=== PATIENT | female | born 1960 | race Caucasian/White ===

== ENCOUNTER 2024-06-30 21:54 | Observation (INO) | payer OTHER, SELFPAY ==
[2024-06-30] VITALS (11 sets, daily range): BP systolic 108–146; BP diastolic 64–83; BMI 22.8
--- NOTE | 2024-06-30 19:20 | ED.CVA ---
History of Present Illness
General
Chief Complaint: CVA/TIA Symptoms
Source: patient
Exam Limitations: none
Time Seen by Provider: 06/30/24 19:18
Onset of Stroke Symptoms
Onset of symptoms known: No
Time pt last seen normal is known: Yes
Date last time pt seen normal: 06/29/24
History of Present Illness
History of Present Illness:
See MDM
Phy Exam
Physical Exam
Physical Exam:
See MDM
Scores
NIH Stroke Score
Level of Consciousness: 0 - Alert
LOC Questions: 0-Answers both correctly
LOC Commands: 0-Performs both correctly
Best Horizontal Gaze: 0-Normal
Visual Fonseca: 0=Normal, no visual loss
Facial Palsy: 0=Normal, symmetrical
Motor - Right Arm: 0=No drift 10 seconds
Motor - Left Arm: 0=No drift 10 seconds
Motor - Right Le-No drift 5 seconds
Motor - Left Le-No drift 5 seconds
Limb Ataxia: 0-Absent
Sensation: 0-Normal
Best Language: 1-Mild aphasia
Dysarthria: 0-Normal
Extinction and Inattention: 0-No abnormality
Total Score:: 1
Course
Orders/Labs/Results
Orders:
Orders
06/30/24 19:18
Electrocardiogram (*1) Stat
Reason for Study: Other
Other Reason for Exam: neuro symptoms
CT Head W/o Iv Contrast Urgent
Comment:
Reason For Exam: expressive aphasia since this morning
EKG- Treatment ONCE
06/30/24 19:22
CT Head & Neck Angio W/wo IV Urgent
Comment:
Reason For Exam: expressive aphasia
06/30/24 19:28
Comprehensive Metabolic Panel Urgent
PTT Urgent
Prothrombin Time Urgent
06/30/24 19:29
Complete Blood Count/With Diff Urgent
Troponin I Urgent
06/30/24 20:00
0.9% Sodium Chloride 1000 ml [Nss] 1,000 ml IV BOLUS
06/30/24 20:48
Consult Neurology [NEUROLOGY CONSULT] Routine
Consulting Provider: Jessie Olvera
Was physician already notified: Yes
Aspirin Chewable [Low Strength Aspirin] 324 mg PO NOW STA
Clopidogrel Bisulfate [Plavix] 300 mg PO NOW STA
Abnormal Lab Results
06/30/24 06/30/24 06/30/24
19: 19:28 19:29
RBC 3.21 L 10^6/uL
(4.20-5.40)
Hgb 9.5 L g/dL
(12.0-16.0)
Hct 29.6 L %
(37.0-47.0)
MCHC 32.1 L g/dL
(33.0-37.0)
RDW 16.9 H %
(11.5-14.5)
Absolute Lymphs (auto) 1.0 L 10^3/uL
(1.2-3.4)
Neutrophils % 75.6 H %
(42.2-75.2)
Lymphocytes % 14.8 L %
(20.5-51.1)
Glucose 130 H mg/dl
(70-99)
AST 42 H U/L
(14-36)
Troponin I 0.084 H* ng/ml
POC Glucose 119 H mg/dl
(70-99)
06/30/24 19:29
06/30/24 19:28
Vital Signs
Initial and Last Documented VS:
Initial Vital Signs
Temp Pulse Resp BP Pulse Ox
97.4 F 84 18 138/67 95
06/30/24 19:19 06/30/24 19:19 06/30/24 19:19 06/30/24 19:19 06/30/24 19:19
Last Documented Vital Signs
Temp Pulse Resp BP Pulse Ox
97.4 F 79 18 131/74 94
06/30/24 19:19 06/30/24 20:45 06/30/24 20:00 06/30/24 20:30 06/30/24 20:45
MDM/Problems Addressed
Differential Diagnosis Includes:
HPI and MDM Narrative:
64-year-old female presenting by EMS for evaluation of expressive aphasia. She woke up at 6 AM with the symptoms. Initially thought this could be medication related so she went back to bed. Throughout the day, symptoms have been progressive.
Since her last known normal was last night at midnight, stroke alert was not called. Case discussed with neurology immediately. Will obtain CT and CTA. Will ultimately admit
Physical exam
General: Well appearing and non-toxic
HEENT: protecting airway
Neck: appears supple
CV: No evidence of cyanosis. Regular rate and rhythm
Resp: No accessory muscle use
Abd: Non-distended
Extremities: No deformities
Neuro: alert. Expressive aphasia but able to get her thought process out
Psych: Normal affect
Skin: Intact
Problems Addressed including Acute and Chronic Conditions affecting care:
1. Expressive aphasia
Acuity: acute
Prognosis: stable
Details: Likely in the setting of CVA. Will obtain CT and CTA.
Updates
CT and CTA negative. Given her persistent symptoms, will give aspirin and Plavix and admit. Patient found to have an elevated troponin but she denies chest pain or shortness of breath. Will repeat EKG
Differential Diagnosis (but not limited to): Intracranial hemorrhage, ischemic stroke, hyponatremia
Testing considered: Carotid ultrasound
Drug therapy (if applicable): OTC meds, please see d/c instruction regarding Rx drugs
Amount and/or Complexity of Data Reviewed
Clinical info obtained from: Patient
External data reviewed: N/A
Labs I independently reviewed (but not limited to): Elevated troponin, anemia
Radiology: The CT scan was personally and independently reviewed. In addition, official CT report reviewed.
Pulse Ox: not hypoxic
EKG independently reviewed: Sinus rhythm, normal axis, no STEMI
Mathematics Academic Chair: Sinus rhythm
Critical Care: N/A
Risk of Complication:
Social Determinants of health: Good social support
Discussed with other providers: Hospitalist, neurologist
Escalation of Care includes Admit/Obs: Given the concern for stroke, will admit
Occasional wrong word or 'sound a like' substitutions may have occurred due to the inherent limitations of voice recognition software. Read the chart carefully and recognize, using context, where substitutions have occurred.
*Critical Care Note
Total Time (30-74mins, 75-104mins- exclusive of procedures): Not Applicable
ED Attending Note
-
Portions of this chart may have been created with voice recognition software.� Occasional wrong word or��sound alike� substitutions may have occurred due to the inherent limitations of voice recognition software.
Discharge Plan
Departure
Patient Disposition: Admit
Date of Disposition: 06/30/24
Time of Disposition: 20:58
Admit to: Telemetry
Presentation/result/management discussed w/ accepting MD/DO: Hospitalist
Discharge Problem:
Expressive aphasia
Prescriptions:
No Action
celecoxib 200 mg Capsule
200 mg PO BID
midodrine 5 mg Tablet
5 mg PO 5/D
aspirin 81 mg Tablet,Delayed Release (Dr/Ec)
81 mg PO DAILY
oxycodone-acetaminophen 5-325 mg Tablet
1 tab PO Q4HPRN PRN (Reason: moderate pain)
Patient Comments:
06/30/2024: last filled 03/12/24, 16 tabs for 3 days from [id number]
primidone 250 mg Tablet
250 mg PO BID
levothyroxine 50 mcg Tablet
50 mcg PO HS
pantoprazole 40 mg Tablet,Delayed Release (Dr/Ec)
40 mg PO DAILY
fludrocortisone 0.1 mg Tablet
0.1 mg PO DAILY
escitalopram oxalate 20 mg Tablet
20 mg PO DAILY
Referrals:
Zhao Muller MD [Family Provider] -
Interventions
Interventions:
*Risk Screen - Suicide Last Done: 06/30/24 19:50
*General Assessment Last Done: 06/30/24 19:50
*Neglect/Abuse Screening Last Done: 06/30/24 19:50
ED- Neurological Assessment Last Done: 06/30/24 19:53
Discharge Date and Time
Print Language: URDU
[2024-06-30 19:23] LABS: Glucose - Point of Care 119 mg/dl (70-99)
[2024-06-30 19:35] LABS: % Basophils 0.1 % (0-2); % Eosinophils 1.2 % (0-6); % Immature Granulocytes 0.4 % (0-0.5); % Lymphocytes 14.8 % (20.5-51.1); % Monocytes 7.9 % (1.7-9.3); % Neutrophils 75.6 % (42.2-75.2); Absolute Eosinophils 0.1 10^3/uL (0-0.7); Absolute Monocytes 0.5 10^3/uL (0.1-0.6); Absolute Neutrophils 5.1 10^3/uL (1.4-6.5); Hematocrit 29.6 % (37.0-47.0); Hemoglobin 9.5 g/dL (12.0-16.0); Mean Corp Hgb Conc. 32.1 g/dL (33.0-37.0); Mean Corpuscular Hgb 29.6 pg (27.0-31.0); Mean Corpuscular Volume 92.2 fL (81.0-99.0); Mean Platelet Volume 9.7 fL (7.4-10.4); Nucleated Red Blood Cells % 0 %; Platelet Count 290 10^3/uL (130-400); Red Blood Cell Count 3.21 10^6/uL (4.20-5.40); Red Cell Dist. Width 16.9 % (11.5-14.5); White Blood Cell Count 6.7 10^3/uL (4.8-10.8)
[2024-06-30 19:53] LABS: INR 1.03; PT 13.3 Sec (11.4-14.6)
[2024-06-30 19:54] LABS: ALT (SGPT) 25 U/L (0-35); APTT 27.6 Sec (23.4-35.0); AST (SGOT) 42 U/L (14-36); Albumin 3.7 g/dl (3.5-5.0); Alkaline Phosphatase 101 U/L (38-126); Blood Urea Nitrogen 16 mg/dl (7-17); Calcium 8.6 mg/dl (8.4-10.2); Carbon Dioxide 24 mmol/L (22-30); Chloride 106 mmol/L (98-107); Estimated Creatinine Clearance 80 ml/min; Glucose 130 mg/dl (70-99); Potassium 3.8 mmol/L (3.5-5.1); Sodium 140 mmol/L (135-145); Total Bilirubin 0.4 mg/dl (0.2-1.3); Total Protein 6.3 g/dl (6.3-8.2); eGFR > 60.00
[2024-06-30 20:04] LABS: Troponin I 0.084 ng/ml
[2024-06-30] MEDS: NSS 1000 IV (20:04)
--- NOTE | 2024-06-30 21:05 | HPS.HSE ---
Family Physician
-
Family Physician: Zhao Muller
Chief Complaint
-
Expressive aphasia
History of Present Illness
64-year-old female with PMH for hypothyroidism, depression, postural hypotension, GERD, essential tremors presented to us with expressive aphasia since this morning. she is having trouble finding words, difficulty expressing herself. patient stated
MORE, dizzy, off balance. patient has history of frequent falls due to postural hypotension. denied fever chills, runny nose, congestion, cough.denied chest pain, sob. denied abdominal pain,n,v,d. denied dysuria or hematuria.
CT and CTA negative loaded with asa and Plavix. admitting for further management.
Medical History
Past Medical History
Past Medical History: Reports Other
Additional Past Medical History:
essential tremors
hypothyroidism
depression
GERD
postural hypotension
Past Surgical History: Reports Other
Additional Past Surgical History:
knee surgery
c1 c2 fusion
femur surgery
stomach surgery
Social History
Tobacco: Former Smoker
Alcohol: Occasional
Drug: None
Personal:
Living: With Family
Family History
Family History: Not pertinent
Allergies / Home Medications
Allergies reflects when Allergies were last updated in [facility].
Home Medications with original date entered in [facility]
Allergy/Medication List:
Allergies
Allergy/AdvReac Type Severity Reaction Status Date / Time
theophylline Allergy Unknown Verified 06/30/24 19:14
Home Medications
aspirin 81 mg tablet,delayed release 81 mg PO DAILY 06/30/24
celecoxib 200 mg capsule 200 mg PO BID 06/30/24
escitalopram oxalate 20 mg tablet 20 mg PO DAILY 06/30/24
fludrocortisone 0.1 mg tablet 0.1 mg PO DAILY 06/30/24
levothyroxine 50 mcg tablet 50 mcg PO HS 06/30/24
midodrine 5 mg tablet 5 mg PO 5/D 06/30/24
oxycodone-acetaminophen 5 mg-325 mg tablet 1 tab PO Q4HPRN PRN moderate pain 06/30/24
pantoprazole 40 mg tablet,delayed release 40 mg PO DAILY 06/30/24
primidone 250 mg tablet 250 mg PO BID 06/30/24
Review of Systems
-
Constitutional: Reports No Symptoms
EENT: Reports No Symptoms
Respiratory: Reports No Symptoms
Cardiac: Reports No Symptoms
Abdomen/GI: Reports No Symptoms
: Reports No Symptoms
Musculoskeletal: Reports No Symptoms
Skin: Reports No Symptoms
Neurological: Reports Dizzy, Weakness and Other (expressive aphasia)
Endocrine: Reports No Symptoms
Hematologic/Lymphatic: Reports No Symptoms
Psych: Reports No Symptoms
Physical Exam
Vital Signs
Vital Signs
Temp Pulse Resp BP Pulse Ox
97.4 F 79 18 131/74 94
06/30/24 19:19 06/30/24 20:45 06/30/24 20:00 06/30/24 20:30 06/30/24 20:45
Physical Exam
General: Well Developed, Well Nourished and No Apparent Distress
HEENT: NormoCephalic, Moist mucous membranes and Atraumatic
Respiratory: Clear
Cardiac: S1/S2 and Regular Rhythm; No Murmur or Rub
GI: Soft, Non Tender, Non Distended and Normal Bowel Sounds; No Organomegaly
Rectal: Deferred by Provider
Musculoskeletal: No Clubbing, No Cyanosis and No Edema
Skin: No Rash
Neuro: AO x 3, Nonfocal/grossly intact, Slurred Speech, Tremors and Other
Psych: Calm
Laboratory Results
-
06/30/24 19:29
06/30/24 19:28
Laboratory Results
PT 13.3 Sec (11.4-14.6) 06/30/24 19:28
INR 1.03 06/30/24 19:
APTT 27.6 Sec (23.4-35.0) 06/30/24:
Total Bilirubin 0.4 mg/dl (0.2-1.3) 06/30/24:
AST 42 U/L (14-36) H 06/30/24:
ALT 25 U/L (0-35) 06/30/24 19:
Alkaline Phosphatase 101 U/L (38-126) 06/30/24:
Troponin I 0.084 ng/ml H* 06/30/24 19:29
Data Reviewed
-
CT Scan: Report Reviewed by me
Lab Data: Labs Reviewed by me
Impression/Plan
-
# Expressive aphasia
-CT and CTA negative
-Loaded with aspirin and Plavix in ER
-Obtain MRI
-Statin continued. asa and plavix
-Obtain A1c and lipid profile
-Neurology consult
# Elevated Trop likely demand ischemia
-Denied any chest pain
-EKG normal sinus rhythm
-Trend Trope
# Anemia likely chronic
-Obtain iron panel, B12, ferritin, folate, TIBC
-Hemoglobin 9.5
-No active bleeding
-Continue to trend
# Depression
Citalopram continued
# Hypothyroidism
-Levothyroxine continued
# Orthostatics
-Midodrine continued
# GERD
-PPI continued
# essential tremors
-Primidone continued
# DVT prophylaxis
-SCDs
# CODE STATUS
-full code
[2024-06-30] MEDS: PLAVIX 300 MG PO (21:08)
[2024-06-30] MEDS: LOW STRENGTH ASPIRIN 324 MG PO (21:09)
--- NOTE | 2024-06-30 22:00 | W.PN.UPDATE ---
Update Note
Progress Note Update
This is an addendum to the H&P written by Val Prieto. Patient seen and examined independently with PARANORMAL INVESTIGATOR.
64-year-old female past medical history of essential tremor, anxiety/depression, postural hypotension, hypothyroidism, GERD, presenting with difficulty expressing words since this morning with headache. She recently had cervical fracture and T1-T2
fracture requiring neck collar which has since been removed. She has chronic tingling in her legs secondary to the fracture.
Denies any other focal neurological deficits, visual symptoms, or difficulty swallowing.
No focal neurological deficits apart from dysarthria. Presentation consistent with CVA. CTA head and neck negative. Check MRI brain, aspirin and Plavix given, check A1c and lipid panel, speech evaluation, PT/OT. Neurology consulted.
[2024-06-30 22:02] LABS: Creatine Phosphokinase 1019 U/L (30-135); Iron 55 ug/dl (37-170)
[2024-06-30 22:11] LABS: Percent Saturation 20 % (20-50); Total Iron Binding Capacity 271 ug/dl (265-497)
[2024-06-30 22:51] LABS: Urine Albumin Negative (Neg - Trace); Urine Bilirubin Negative (Negative); Urine Character Clear (Clear); Urine Color Yellow; Urine Glucose Negative (Negative); Urine Ketone Negative (Negative); Urine Leukocyte Negative (Negative); Urine Nitrite Positive (Negative); Urine Occult Blood Negative (Negative); Urine Urobilinogen Negative (Neg - 1+)
[2024-06-30 22:56] LABS: Tricyclic Antidepressants Positive (Negative)
[2024-06-30 22:57] LABS: Amphetamines Negative (Negative); Barbiturates Positive (Negative); Benzodiazepines Negative (Negative); Buprenorphine Negative (Negative); Cocaine Negative (Negative); Marijuana Negative (Negative); Methadone Negative (Negative); Methamphetamines Negative (Negative); Opiates Negative (Negative); Phencyclidine Negative (Negative)
[2024-06-30 23:19] LABS: Urine Bacteria Moderate (Negative); Urine Squamous Cell >30 /LPF (Few); Urine White Cell 16-20 /HPF (0-5)
[2024-07-01] VITALS (19 sets, daily range): BP systolic 101–145; BP diastolic 61–107; PULSE 61–141; BMI 22.8
[2024-07-01] MEDS: SYNTHROID 50 MCG PO ×2 (02:12→22:33)
[2024-07-01 03:07] LABS: Ferritin 13.7 ng/ml (11.1-264.0)
[2024-07-01 03:38] LABS: Folate 8.9 ng/ml (2.76-20); Vitamin B12 655 pg/ml (239-931)
[2024-07-01 05:29] LABS: Hematocrit 27.4 % (37.0-47.0); Hemoglobin 8.7 g/dL (12.0-16.0); Mean Corp Hgb Conc. 31.8 g/dL (33.0-37.0); Mean Corpuscular Hgb 29.3 pg (27.0-31.0); Mean Corpuscular Volume 92.3 fL (81.0-99.0); Mean Platelet Volume 10.1 fL (7.4-10.4); Platelet Count 270 10^3/uL (130-400); Red Blood Cell Count 2.97 10^6/uL (4.20-5.40); Red Cell Dist. Width 16.8 % (11.5-14.5); White Blood Cell Count 6.1 10^3/uL (4.8-10.8)
[2024-07-01 05:56] LABS: Blood Urea Nitrogen 11 mg/dl (7-17); Calcium 8.4 mg/dl (8.4-10.2); Carbon Dioxide 25 mmol/L (22-30); Chloride 107 mmol/L (98-107); Estimated Creatinine Clearance 80 ml/min; Glucose 97 mg/dl (70-99); HDL Cholesterol 84 mg/dl; LDL Cholesterol, Calculated 81 mg/dl; Sodium 140 mmol/L (135-145); Total Cholesterol 181 mg/dl (50-199); Triglyceride 83 mg/dl (10-149); Very Low Density Lipoprotein 16 mg/dl (0-30); eGFR > 60.00
[2024-07-01 07:34] LABS: Glycohemoglobin (HgbA1c) 3.8 % (4.0-5.6)
--- NOTE | 2024-07-01 07:47 | CON.NEURO ---
Consultation
Order
Date of Consultation: 07/01/24
Requesting Provider:
Reason for Consult:
CC:
HPI: This is a 64-year-old woman who presented to [facility] on June 30, 2024 with expressive aphasia. According to the patient he has had intermittent expressive dysphagia that have worsened on the morning of the presentation.
This issue has been more evident when trying to formulate and express concepts to others. Ms Mcclain describes semantic errors with no perseveration, phonemic errors. She also reports struggles with maintaining the plot themes while reading.
however, her calculation abilities appear to be preserved. No reports of headache, abnormal movements or family history of history of neurodegenerative disease.
She has a history of a traumatic brain injury (TBI) and C2 fracture, which occurred on April 19. She underwent surgery at [place], performed by Dr. Martínez, followed by a wrist surgery performed by Dr. Dinero. She reports experiencing neck
pain/stiffness and headaches since the surgery. Caity also reports tingling in her fingers in a glove pattern and difficulty identifying objects by touch, which began immediately after the surgery.
ER VS: 138/67, 84, afebrile.
EKG: NSR with 1 st degree of AVB, QTc Int : 451 ms.
PDMP: Oxycodone Hcl (Ir) 5 Mg 5 tabs filled in on 04/10/2024.
Labs: Glucose�130, normal WBCs, sodium, creatinine, hemoglobin�9.5, absolute lymphocyte count�1, troponin�0.0 84, creatinine kinase�1019, LDL�81, vitamin B12�655, normal folate, UA�positive for nitrates, WBCs�bacteria, urine tox�positive for
barbiturates, tricyclic's.
CTA head/neck-no hemodynamically significant stenosis.
Brain MRI wo julianne -no abnormal brain parenchymal signal intensity. Mild parenchymal volume loss(more pronounced bifrontally). Prior C1-C2 posterior fusion. There is a 4 mm focus of T2 hyperintense, T1 hypointense signal within the posterior cord at
the C1-C2 level
PMH:cervical myelopathy, ET, hypothyroidism, anemia, asthma, MDD, h/o obesity; hypotension
PSH:biliopancreatic diversion with duodenal switch, C1-C2 posterior fusion, R TKA, R tibial plateau and distal femur ORIF
SH: lives with a significant other; retired form hospital management; former smoker; social ETOh use; uses a cane PRN
FH: father-hand tremor
All: theophylline
Home Meds: aspirin 81 mg tablet,delayed release 81 mg PO DAILY 06/30/24
celecoxib 200 mg capsule 200 mg PO BID 06/30/24
escitalopram oxalate 20 mg tablet 20 mg PO DAILY 06/30/24
fludrocortisone 0.1 mg tablet 0.1 mg PO DAILY 06/30/24
levothyroxine 50 mcg tablet 50 mcg PO HS 06/30/24
midodrine 5 mg tablet 5 mg PO 5/D 06/30/24
oxycodone-acetaminophen 5 mg-325 mg tablet 1 tab PO Q4HPRN PRN moderate pain 06/30/24
pantoprazole 40 mg tablet,delayed release 40 mg PO DAILY 06/30/24
primidone 250 mg tablet 250 mg PO BID 06/30/24
ROS:Constitutional: Negative. Negative for chills, fever and unexpected weight change.
HENT: Negative for ear pain, hearing loss, tinnitus and trouble swallowing.
Eyes: Negative. Negative for photophobia, pain and visual disturbance.
Respiratory: Negative for cough, choking and shortness of breath.
Cardiovascular: Negative for chest pain, palpitations and leg swelling.
Gastrointestinal: positive for intermittent diarrhea
Endocrine: Negative. Negative for cold intolerance.
Genitourinary: Negative for dysuria, flank pain and urgency.
Musculoskeletal: Positive for neck stiffness.
Skin: Negative for rash.
Allergic/Immunologic: Negative. Negative for immunocompromised state.
Neurological: Positive for imbalance, numbness and weakness in arms, hand and chin tremor, language dysfunction.
Psychiatric/Behavioral: Negative for behavioral problems, confusion and hallucinations.
General: Well developed. In no acute distress.
Cardio: Regular rate and rhythm without murmur. Extremities are without cyanosis or edema.
Neuro:
Mental Status: Alert, oriented to person, place, and date. Moderate expressive dysphasia. Semantic errors. Normal attention and recall. Good fund of knowledge. Follows complex requests across the midline. Comprehension, naming, and repetition
intact. Immediate and delayed recall 3/3.
Cranial Nerves: Pupils are equally round and reactive to light. EOMs full. Visual solano full to confrontation. No ptosis. No nystagmus. V1-V3 intact to light touch and pinprick bilaterally, symmetric. Face symmetric. Normal hearing AU. The
palate elevated well. SCMs and traps 5/5. Tongue midline. No dysarthria.
Motor: Normal bulk and tone. No pronator or arm drift. Strength 5/5 throughout, except for BL IO, WE, finger flexion 4=/5, L hip flexors/knee extensors 4/5. No clonus.
Reflexes: 3+ throughout the upper extremities and knees. + grasp on the R. Positive Roe's BL. Plantar responses flexor bilaterally.
Sensory: Normal vibration at the toes
Coordination: BL action and tremor. Chin and voice tremor.
Gait: deferred
Assessment and Plan:
I. Expressive dysphasia. Likely etiology neurodegenerative(PPA), less likely epileptic.
II. Cervical myelopathy, s/p C1-C2 posterior fusion
III. Essential tremor
-Fall precautions
-PT
-Speech therapy
-Routine EEG
-Pleaswe check vit B12, folate, vit B1
-Neuropsychological evaluation
-OP NCS/EMG of BL LEs givel left proximal leg weakness
-Outpatient neurology follow-up in 2�3 weeks
I personally reviewed all radiology and labs along with past medical records pertinent to current medical problems. Total time spent in patient care is 60 minutes.
Thank you for allowing us to participate in the care of this patient. We will continue to follow. Please do not hesitate to contact us with any questions or concerns.
Subjective/Objective
Subjective Data
Date of Service: July 01, 2024
Objective Data
Vital Signs
Temp Pulse Resp BP Pulse Ox
36.3 C 94 17 124/90 96
06/30/24 19:19 07/01/24 06:45 07/01/24 01:13 07/01/24 05:00 07/01/24 05:00
Lab Results
07/01/24 05:08
07/01/24 05:08
PT 13.3 Sec (11.4-14.6) 06/30/24 19:28
INR 1.03 06/30/24 19:28
APTT 27.6 Sec (23.4-35.0) 06/30/24 19:28
Sodium 140 mmol/L (135-145) 07/01/24 05:08
Potassium 4.0 mmol/L (3.5-5.1) 07/01/24 05:08
BUN 11 mg/dl (7-17) 07/01/24 05:08
Glucose 97 mg/dl (70-99) 07/01/24 05:08
Calcium 8.4 mg/dl (8.4-10.2) 07/01/24 05:08
LDL Cholesterol, Calc 81 mg/dl 07/01/24 05:08
Vitamin B12 655 pg/ml (239-931) 06/30/24 19:29
Ur Buprenorphine Negative (Negative) 06/30/24 22:35
Patient Allergies
theophylline Allergy (Verified 06/30/24 19:14)
Unknown
Medications
-
Active Medications
Generic Name Dose Route Start Last Admin
Trade Name Freq PRN Reason Stop Dose Admin
Acetaminophen 650 mg 06/30/24 23:50
Acetaminophen 650 Mg Rectal Suppository RECTAL 07/28/24 23:49
Q4HPRN PRN
MORE, mild pain, or temp >100.4F
Acetaminophen 650 mg 06/30/24 23:50
Acetaminophen 325 Mg Tablet PO 07/28/24 23:49
Q4HPRN PRN
MORE, mild pain, or temp >100.4F
Aspirin 81 mg 07/01/24 08:00
Aspirin 81 Mg (Enteric Coated) Tablet PO 07/29/24 07:59
DAILY CARL
Atorvastatin Calcium 40 mg 07/01/24 18:00
Atorvastatin (Lipitor) 40 Mg Tablet PO 07/29/24 17:59
QPM CARL
Clopidogrel Bisulfate 75 mg 07/01/24 08:00
Clopidogrel 75 Mg Tablet PO 07/29/24 07:59
DAILY CARL
Escitalopram Oxalate 20 mg 07/01/24 08:00
Escitalopram 20 Mg Tablet PO 07/29/24 07:59
DAILY CARL
Fludrocortisone Acetate 0.1 mg 07/01/24 08:00
Fludrocortisone Acetate 0.1 Mg Tablet PO 07/29/24 07:59
DAILY CARL
Levothyroxine Sodium 50 mcg 07/01/24 01:00 07/01/24 02:12
Levothyroxine 50 Mcg Tablet PO 07/29/24 00:59 50 mcg
HS CARL Administration
Midodrine 5 mg 06/30/24 23:50
Midodrine 5 Mg Tablet PO 07/28/24 23:49
5/D CARL
Oxycodone/Acetaminophen 1 tablet 06/30/24 23:50
Oxycodone 5 Mg/Apap 325 Mg (Percocet) PO 07/14/24 23:49
Q4HPRN PRN
moderate pain
Pantoprazole Sodium 40 mg 07/01/24 08:00
Pantoprazole 40 Mg Delayed Release Tablet PO 07/29/24 07:59
DAILY CARL
Primidone 250 mg 07/01/24 08:00
Primidone 250 Mg Tablet PO 07/29/24 07:59
BID CARL
Home Medications
�Medication �Instructions �Recorded
aspirin 81 mg tablet,delayed 81 mg PO DAILY 06/30/24
release
celecoxib 200 mg capsule 200 mg PO BID 06/30/24
escitalopram oxalate 20 mg tablet 20 mg PO DAILY 06/30/24
fludrocortisone 0.1 mg tablet 0.1 mg PO DAILY 06/30/24
levothyroxine 50 mcg tablet 50 mcg PO HS 06/30/24
midodrine 5 mg tablet 5 mg PO 5/D 06/30/24
oxycodone-acetaminophen 5 mg-325 1 tab PO Q4HPRN PRN moderate pain 06/30/24
mg tablet
pantoprazole 40 mg tablet,delayed 40 mg PO DAILY 06/30/24
release
primidone 250 mg tablet 250 mg PO BID 06/30/24
Vital Signs and Labs
-
Vital Signs and Labs:
Vital Signs
Temp Pulse Resp BP Pulse Ox
36.3 C 92 17 102/88 96
06/30/24 19:19 07/01/24 09:30 07/01/24 01:13 07/01/24 08:53 07/01/24 05:00
Lab Results
07/01/24 05:08
07/01/24 05:08
PT 13.3 Sec (11.4-14.6) 06/30/24 19:28
INR 1.03 06/30/24 19:28
APTT 27.6 Sec (23.4-35.0) 06/30/24 19:28
Sodium 140 mmol/L (135-145) 07/01/24 05:08
Potassium 4.0 mmol/L (3.5-5.1) 07/01/24 05:08
BUN 11 mg/dl (7-17) 07/01/24 05:08
Glucose 97 mg/dl (70-99) 07/01/24 05:08
Calcium 8.4 mg/dl (8.4-10.2) 07/01/24 05:08
LDL Cholesterol, Calc 81 mg/dl 07/01/24 05:08
Vitamin B12 769 pg/ml (104-585) 07/01/24 05:08
Ur Buprenorphine Negative (Negative) 06/30/24 22:35
Medications
-
Medications:
Generic Name Dose Route Start Last Admin
Trade Name Freq PRN Reason Stop Dose Admin
Acetaminophen 650 mg 06/30/24 23:50
Acetaminophen 650 Mg Rectal Suppository RECTAL 07/28/24 23:49
Q4HPRN PRN
MORE, mild pain, or temp >100.4F
Acetaminophen 650 mg 06/30/24 23:50
Acetaminophen 325 Mg Tablet PO 07/28/24 23:49
Q4HPRN PRN
MORE, mild pain, or temp >100.4F
Aspirin 81 mg 07/01/24 08:00 07/01/24 08:38
Aspirin 81 Mg (Enteric Coated) Tablet PO 07/29/24 07:59 81 mg
DAILY CARL Administration
Atorvastatin Calcium 40 mg 07/01/24 18:00
Atorvastatin (Lipitor) 40 Mg Tablet PO 07/29/24 17:59
QPM CARL
Clopidogrel Bisulfate 75 mg 07/01/24 08:00 07/01/24 08:38
Clopidogrel 75 Mg Tablet PO 07/29/24 07:59 75 mg
DAILY CARL Administration
Escitalopram Oxalate 20 mg 07/01/24 08:00 07/01/24 08:39
Escitalopram 20 Mg Tablet PO 07/29/24 07:59 20 mg
DAILY CARL Administration
Fludrocortisone Acetate 0.1 mg 07/01/24 08:00 07/01/24 10:06
Fludrocortisone Acetate 0.1 Mg Tablet PO 07/29/24 07:59 0.1 mg
DAILY CARL Administration
Levothyroxine Sodium 50 mcg 07/01/24 01:00 07/01/24 02:12
Levothyroxine 50 Mcg Tablet PO 07/29/24 00:59 50 mcg
HS CARL Administration
Midodrine 5 mg 06/30/24 23:50
Midodrine 5 Mg Tablet PO 07/28/24 23:49
5/D CARL
Oxycodone/Acetaminophen 1 tablet 06/30/24 23:50
Oxycodone 5 Mg/Apap 325 Mg (Percocet) PO 07/14/24 23:49
Q4HPRN PRN
moderate pain
Pantoprazole Sodium 40 mg 07/01/24 08:00 07/01/24 08:39
Pantoprazole 40 Mg Delayed Release Tablet PO 07/29/24 07:59 40 mg
DAILY CARL Administration
Primidone 250 mg 07/01/24 08:00 07/01/24 10:04
Primidone 250 Mg Tablet PO 07/29/24 07:59 250 mg
BID CARL Administration
Home Medications
-
Home Medications
aspirin 81 mg tablet,delayed release 81 mg PO DAILY 06/30/24
celecoxib 200 mg capsule 200 mg PO BID 06/30/24
escitalopram oxalate 20 mg tablet 20 mg PO DAILY 06/30/24
fludrocortisone 0.1 mg tablet 0.1 mg PO DAILY 06/30/24
levothyroxine 50 mcg tablet 50 mcg PO HS 06/30/24
midodrine 5 mg tablet 10 mg PO BID@0800,1200 06/30/24
oxycodone-acetaminophen 5 mg-325 mg tablet 1 tab PO Q4HPRN PRN moderate pain 06/30/24
pantoprazole 40 mg tablet,delayed release 40 mg PO DAILY 06/30/24
primidone 250 mg tablet 250 mg PO BID 06/30/24
midodrine 5 mg tablet 5 mg PO QPM 07/01/24
[2024-07-01] MEDS: ASPIR LOW (ENTERIC COATED) 81 MG PO (08:38)
[2024-07-01] MEDS: PLAVIX 75 MG PO (08:38)
[2024-07-01] MEDS: PROTONIX 40 MG PO (08:39)
[2024-07-01] MEDS: LEXAPRO 20 MG PO (08:39)
--- NOTE | 2024-07-01 08:41 | W.PN.UPDATE ---
Update Note
Progress Note Update
I personally performed a history and physical exam of the patient and discussed management with the resident. I reviewed the resident's note and agree with the documented findings and plan of care HPI/CC except changes in documentation.
64-year-old female with speech abnormality.
CVS: S1-S2 normal
Chest: CTA B/L
Abdomen: Soft, NT / Bowel sounds present
Extremities: No edema, normal pulses
CAFETERIA CASHIER: mild tremors, mild
# Expressive -Dysphagia speech abnormality
Neurology feels neurodegenerative changes.
Connection studies, neuropsychological evaluation as outpatient and also outpatient neurology evaluation
No orthostatic changes noted
PT OT
# Cervical spine C1 and C2 fusion at [facility] October 2023
# Elevated troponin-Follow. Check echo
# Atherosclerosis
# Anemia-Normal iron studies, B12
# Mild Rhabdo-mild elevation in CPK-follow
# Mild elevation in AST secondary to elevated secondary to mild rhabdo-IVF
# Hypothyroidism-continue levothyroxine
# Chronic orthostatic hypotension-continue Midodrine, Florinef, IVF
# GERD-continue PPI
# Essential tremors-continue primidone
# Asthma-NOS stable.
# Duodenal switch surgery for weight loss
# Anxiety and depression-continue Lexapro
# DVT prophylaxis - SCDs
# Full code
D/W RN
D/W Neuro
--- NOTE | 2024-07-01 08:48 | W.PN.HOSP.TC ---
Today's Communication/Plan
-
-OT/PT Evaluation
Assessment / Plan
Assessment / Plan
Impression: The patient is a 64 year old female with a PMH of hypothyroidism, depression, postural hypotension, GERD, essential tremors, traumatic brain injury (TBI) and C2 fracture (April 19) presented to ER on 06/30, complaining from having
difficulty with her speeching. She reported this problem started yesterday morning and got worsen until afternoon. The patient denied other symptoms like chest pain, irregular heart beating, shortness of breath, feeling weakness on legs/arms,
difficulty with swallowing. Head CT/Head-Neck CTA was unremarkable. Her brain MRI showed: no acute abnormality and represent myelomalacia in the setting of prior trauma of the patient.
# Expressive Aphasia
-Neurology assessment: Likely etiology neurodegenerative(PPA), less likely epileptic.
-Hx of weakness of left proximal leg weakness+bilateral upper extremity weakness): OP EMG was recc by neurology
-Hx of Cervical myelopathy with s/p C1-C2 posterior fusion (in 2023)
-OP Neurology follow up was recc (May have EEG+ Neuropsychological evaluation)
-Vit B12 N, Folat: N
-No orthostatic changes noted
-PT/OT evaluation
# Elevated troponin
-Denies chest pain
-Troponin: Down trending: Dropped from 0.080 to 0.057
-Echo: Mild mitral Regurgitation-No No regional wall motion abnormalities- no cardioembolic source
# Anemia presumed chronic
-Vit B12:769
-TIBC:252 Ferritin: 14.5 Iron:70 %sat:27
- folate: 8.9
-Hemoglobin 9.5
-No active bleeding
-Continue to trend
#mild elevation in CPK
-Trending down from 1019 to 775
-likely rhabdomyolysis
-Cr: 0.7
# Hypothyroidism
-On levothyroxine
# Chronic orthostatic hypotension
-continue Midodrine, Florinef, IVF
# GERD
PPI
# Essential tremors
-Continue primidone
# Anxiety and depression
-Continue Lexapro
# DVT prophylaxis
- SCDs
#Code status
Full code
Anticipated Discharge: 24 - 48 hours
Subjective/Interval History
-
Date of Service: July 01, 2024
The patient reported her difficulty with talking improved some. She reported having baseline arm weakness due having cervical myelomalacia. Reported having an cervical operation from cervical vertebral area about 6 months ago after falling down.
Objective Data
-
Labs:
Laboratory Results
07/01/24
05:08
WBC 6.1
Hgb 8.7 L
Hct 27.4 L
Plt Count 270
Sodium 140
Potassium 4.0
Chloride 107
Carbon Dioxide 25
BUN 11
Creatinine 0.7
Glucose 97
Calcium 8.4
Vital Signs:
Vital Signs
Temp Pulse Resp BP Pulse Ox
97.4 F 94 17 124/90 96
06/30/24 19:19 07/01/24 06:45 07/01/24 01:13 07/01/24 05:00 07/01/24 05:00
I&O
06/30/24 07/01/24 07/02/24
06:59 06:59 06:59
Output Total 700 / 700
Balance -700 / -700
Review of Systems
-
History Source: Patient
EENT: Reports No Symptoms Reported
Respiratory: Reports No Symptoms
Cardiac: Reports No Symptoms
Abdomen/GI: Reports No Symptoms
Genitourinary: Reports No Symptoms
Musculoskeletal: Reports Other (See HPI )
Skin: Reports No Symptoms
Neuro: Reports Other (expressive aphasia)
Physical Exam
-
General: Well Developed, Well Nourished and No Apparent Distress
HEENT: Normocephalic and Atraumatic
Respiratory: Clear to Auscultation
Cardiac: Regular Rhythm and S1/S2
GI: Soft and Nontender
Musculoskeletal: No Clubbing, No Cyanosis, No Edema and Other (See HPI )
Skin: Warm
Neuro: Awake, Alert, Oriented, AO x 3, Nonfocal/Grossly Intact and Other (Bilateral upper extremity weakness related cervical myelomalacia )
[2024-07-01 09:24] LABS: Iron 70 ug/dl (37-170)
[2024-07-01 09:34] LABS: Percent Saturation 27 % (20-50); Total Iron Binding Capacity 252 ug/dl (265-497)
[2024-07-01 09:37] LABS: Ferritin 14.5 ng/ml (11.1-264.0)
[2024-07-01 09:51] LABS: Vitamin B12 769 pg/ml (239-931)
[2024-07-01 09:59] LABS: Troponin I 0.057 ng/ml
[2024-07-01] MEDS: MYSOLINE 250 MG PO ×2 (10:04→19:49)
[2024-07-01] MEDS: FLORINEF 0.1 MG PO (10:06)
--- NOTE | 2024-07-01 12:46 | PTOTSP ---
Speech Therapy Assessment
Pt's oropharyngeal swallow within functional limits at this time. Pt complained of pharyngeal stasis, however reported utilization of liquid washes to assist in bolus clearance. Pt also endorsed a history of GERD, however reported it is well managed
with medications. Regarding language, pt reported expressive language deficits with word finding, paraphasias, and circumlocutions, which were observed during clinical observation. Expressive language deficits may or may not have worsened since
admission per pt report, warranting CASTING HOUSE LABORER followup to further assess current language skills.
Recommend:
1. ISSDI Level 7/0 (regular solids/thin liquids)
2. follow up speech therapy to assess language and cognitive communication
[2024-07-01 13:09] LABS: Urine Albumin Negative (Neg - Trace); Urine Bilirubin Negative (Negative); Urine Character Clear (Clear); Urine Color Yellow; Urine Glucose Negative (Negative); Urine Ketone Negative (Negative); Urine Leukocyte Trace (Negative); Urine Nitrite Positive (Negative); Urine Occult Blood Negative (Negative); Urine Urobilinogen Negative (Neg - 1+)
[2024-07-01 13:18] LABS: Urine Bacteria Many (Negative); Urine Red Blood Cell 0-2 /HPF (0-2); Urine Squamous Cell 0-2 /LPF (Few)
--- NOTE | 2024-07-01 13:49 | CM ---
CM reviewed medical records. OBS letter given and discussed. Patient confirmed demographics. Patient confirms that she lives with her significant other Virgilio. Patient has a walker, cane and raised toilet seat. Patient has a history of VN, but is
currently not on services. Patient denied a history SNF. Patient is active with her PCP. [facility].
CM is awaiting PT recommendations for further discharge planning efforts.
PLAN: pending PT recommendations.
[2024-07-01] MEDS: ProAmatine PO ×2 (14:53→18:00)
[2024-07-01 16:55] LABS: Creatine Phosphokinase 775 U/L (30-135)
[2024-07-01] MEDS: NSS 1000 IV (19:01)
[2024-07-01] MEDS: LIPITOR 40 MG PO (19:48)
[2024-07-01 22:01] LABS: Urine Albumin Negative (Neg - Trace); Urine Bilirubin Negative (Negative); Urine Character Clear (Clear); Urine Color Yellow; Urine Glucose Negative (Negative); Urine Ketone Negative (Negative); Urine Leukocyte Trace (Negative); Urine Nitrite Positive (Negative); Urine Occult Blood Negative (Negative); Urine Specific Gravity 1.005 (<1.030); Urine Urobilinogen Negative (Neg - 1+)
[2024-07-01 22:09] LABS: Urine Bacteria Many (Negative); Urine Red Blood Cell 0-2 /HPF (0-2)
[2024-07-01] MEDS: NEURONTIN 300 MG PO (22:33)
[2024-07-02] VITALS (26 sets, daily range): BP systolic 117–154; BP diastolic 73–135; PULSE 86–121; O2SAT 95
--- NOTE | 2024-07-02 01:00 | W.PN.UPDATE ---
Update Note
Progress Note Update
-Reported by the nursing staff that the patient an episode of hallucination.
-Patient answering orientation questions correctly, NIHSS/neuro checks which no changes which is 0-1 for expressive aphasia at times.
- Abnormal Urinalysis result received, patient complained of urgency and burning dysuria. Will start the patient on ceftriaxone q 24hrs.
[2024-07-02] MEDS: ROCEPHIN 1000 MG IV (01:10)
[2024-07-02] MEDS: STERILE WATER FOR INJECTION 10 ML IV (01:11)
[2024-07-02 05:23] LABS: Hematocrit 27.5 % (37.0-47.0); Mean Corp Hgb Conc. 32.7 g/dL (33.0-37.0); Mean Corpuscular Hgb 31.1 pg (27.0-31.0); Mean Corpuscular Volume 95.2 fL (81.0-99.0); Mean Platelet Volume 10.3 fL (7.4-10.4); Platelet Count 274 10^3/uL (130-400); Red Blood Cell Count 2.89 10^6/uL (4.20-5.40); Red Cell Dist. Width 16.8 % (11.5-14.5); White Blood Cell Count 7.8 10^3/uL (4.8-10.8)
[2024-07-02] MEDS: NSS 1000 IV ×2 (05:40→16:32)
[2024-07-02 06:22] LABS: ALT (SGPT) 24 U/L (0-35); AST (SGOT) 35 U/L (14-36); Albumin 3.4 g/dl (3.5-5.0); Alkaline Phosphatase 101 U/L (38-126); Blood Urea Nitrogen 6 mg/dl (7-17); Calcium 8.3 mg/dl (8.4-10.2); Carbon Dioxide 21 mmol/L (22-30); Chloride 106 mmol/L (98-107); Estimated Creatinine Clearance 93 ml/min; Glucose 91 mg/dl (70-99); Sodium 140 mmol/L (135-145); Total Bilirubin 0.2 mg/dl (0.2-1.3); Total Protein 5.9 g/dl (6.3-8.2); eGFR > 60.00
--- NOTE | 2024-07-02 07:01 | W.PN.HOSP.TC ---
Addendum entered and electronically signed by Júnior Rivera MD 07/02/24 15:29:
I personally performed a history and physical exam of the patient and discussed management with the resident. I reviewed the resident's note and agree with the documented findings and plan of care HPI/CC except for changes in my documentation.
Feels OK. There was a note that she was confused. Pt says she is not and she felt that the blanket was folded in such a way that it looked like a baby and she passed this commend. That's all.
she feels she needs PT
CVS: S1-S2 normal
Chest: CTA B/L
Abdomen: Soft, NT / Bowel sounds present
Extremities: No edema, normal pulses
DIRECTOR BUSINESS INTEGRATION: no facial droop. Speech thick, Good distal strength.
I personally performed a history and physical exam of the patient and discussed management with the resident. I reviewed the resident's note and agree with the documented findings and plan of care HPI/CC except changes in documentation.
64-year-old female with speech abnormality.
CVS: S1-S2 normal
Chest: CTA B/L
Abdomen: Soft, NT / Bowel sounds present
Extremities: No edema, normal pulses
DIRECTOR BUSINESS INTEGRATION: mild tremors, mild, good distal strength, thick speech
# Expressive -Dysphagia speech abnormality
Neurology feels neurodegenerative changes.
EMG and nerve conduction studies, neuropsychological evaluation as outpatient and also outpatient neurology evaluation
This was discussed with the patient and daughter today.
No orthostatic changes noted
PT OT recommends acute rehab
# UTI- Rocephin
# Cervical spine C1 and C2 fusion at [facility] October 2023. Patient states that she was discharged from neurosurgery follow-up.
# Elevated troponin-non ischemic myocardial injury.. Echo noted-EF 66%, normal RV size and function. Mild to moderate moderate TR. Pulmonary artery pressure 45 to 50 mmHg
# Atherosclerosis
# Anemia-Normal iron studies, B12
# Mild Rhabdo-mild elevation in CPK-follow
# Mild elevation in AST secondary to elevated secondary to mild Rhabdo-IVF
# Hypothyroidism-continue levothyroxine
# Chronic orthostatic hypotension-continue Midodrine, Florinef
# GERD-continue PPI
# Essential tremors-continue primidone
# Asthma-NOS stable.
# Duodenal switch surgery for weight loss
# Anxiety and depression-continue Lexapro
# DVT prophylaxis - SCDs
# Full code
Discussed with patient's daughter from her cell phone at bedside.
Case management made aware that patient is medically stable for discharge to acute rehab. Advised to send referrals to [facility] rehab also in addition to [facility].
Original Note:
Today's Communication/Plan
-
-Psychiatry cons for acute rehab
Assessment / Plan
Assessment / Plan
Impression: The patient is a 64 year old female with a PMH of hypothyroidism, depression, postural hypotension, GERD, essential tremors, traumatic brain injury (TBI) and C2 fracture (April 19) presented to ER on 06/30, complaining from having
difficulty with her speeching. She reported this problem started yesterday morning and got worsen until afternoon. The patient denied other symptoms like chest pain, irregular heart beating, shortness of breath, feeling weakness on legs/arms,
difficulty with swallowing. Head CT/Head-Neck CTA was unremarkable. Her brain MRI showed: no acute abnormality and represent myelomalacia in the setting of prior trauma of the patient.
# Expressive Aphasia
-Neurology assessment: Likely etiology neurodegenerative(PPA), less likely epileptic.
-Hx of weakness of left proximal leg weakness+bilateral upper extremity weakness): OP EMG was recc by neurology
-Hx of Cervical myelopathy with s/p C1-C2 posterior fusion (in 2023)
-OP Neurology follow up was recc (May have EEG+ Neuropsychological evaluation)
-Vit B12 N, Folat: N
-No orthostatic changes noted
-PT/OT evaluation: Acute Rehab ( will benefit from skilled therapy 3 or more hours/day): Patient is aware that she might not be qualified for acute rehab unit.
#UTI
-UA:Remarkable for UTI
-Started on ceftriaxone ON 07/02
-No fever , no leucocytosis
#Tachycardia
-Was seen by distribution sales representative in January 2024 and was told no significant problem
-No any heart rate regulating medication / No remarkable EKG change
-Follow up OP cardiology
#Alcohol Withdrawal-Less likely
-Denies having hallucinations, sweating and feeling anxious since admission
(The patient reported that yesterday nurse misunderstood her and she was not hallucinating. Denied any visual/auditory hallucinations, sweating, feeling anxious, increased BP
-CIWA score 3
-Ordered protocol to follow up
-Gabapentin was continued 300 mg TID
# Elevated troponin
-Denies chest pain
-Troponin: Down trending: Dropped from 0.080 to 0.057
-Echo: Mild mitral Regurgitation-No No regional wall motion abnormalities- no cardioembolic source
# Anemia presumed chronic
-Vit B12:769
-TIBC:252 Ferritin: 14.5 Iron:70 %sat:27
- folate: 8.9
-Hemoglobin 9.0
-No active bleeding
-Continue to trend
#mild elevation in CPK
-Trending down from 1019 to 775
-likely rhabdomyolysis
-Cr: 0.7
# Hypothyroidism
-On levothyroxine
# Chronic orthostatic hypotension
-continue Midodrine, Florinef, IVF
# GERD
PPI
# Essential tremors
-Continue primidone
# Anxiety and depression
-Continue Lexapro
# DVT prophylaxis
- SCDs
#Code status
Full code
Anticipated Discharge: 24 - 48 hours
Subjective/Interval History
-
Date of Service: July 02, 2024
The patient was seen in her bed talking with her daughter on the phone. She reported that she was told she had hallucination last because she told her blanket looks like a baby shape. She denied having visiual/auditoy hallucination. She denied
feeling anxious and reported her last drinking was on Saturdays and it was only one glass of drink.
Objective Data
-
Labs:
Laboratory Results
07/02/24
04:20
WBC 7.8
Hgb 9.0 L
Hct 27.5 L
Plt Count 274
Sodium 140
Potassium 4.0
Chloride 106
Carbon Dioxide 21 L
BUN 6 L
Creatinine 0.6
Glucose 91
Calcium 8.3 L
Total Bilirubin 0.2
AST 35
ALT 24
Alkaline Phosphatase 101
Vital Signs:
Vital Signs
Temp Pulse Resp BP Pulse Ox
98.3 F 75 14 130/83 95
07/02/24 04:13 07/02/24 05:00 07/02/24 04:13 07/02/24 05:00 07/02/24 04:13
I&O
07/01/24 07/02/24 07/03/24
06:59 06:59 06:59
Intake Total 1210 / 1210
Output Total 700 / 700
Balance -700 / -700 1210 / 1210
Review of Systems
-
History Source: Patient
EENT: Reports No Symptoms Reported
Respiratory: Reports No Symptoms
Cardiac: Reports No Symptoms
Abdomen/GI: Reports No Symptoms
Genitourinary: Reports No Symptoms
Musculoskeletal: Reports Other (See HPI )
Skin: Reports No Symptoms
Neuro: Reports Other (See HPI )
Physical Exam
-
General: Conversant and Appears Chronically Ill
HEENT: Normocephalic and Atraumatic
Respiratory: Clear to Auscultation
Cardiac: Regular Rhythm, S1/S2 and Tachycardic
GI: Soft and Nontender
Musculoskeletal: Other (Weakness on bilateral upper extremity following cervical trauma )
Skin: Warm
Neuro: Awake, Alert, Oriented, AO x 3 and Other (See HPI )
Psych: Calm
[2024-07-02] MEDS: ASPIR LOW (ENTERIC COATED) 81 MG PO (09:06)
[2024-07-02] MEDS: PROTONIX 40 MG PO (09:06)
[2024-07-02] MEDS: ProAmatine PO ×3 (09:07→18:19)
[2024-07-02] MEDS: LEXAPRO 20 MG PO (09:07)
[2024-07-02] MEDS: MYSOLINE 250 MG PO ×2 (09:07→21:49)
[2024-07-02] MEDS: NEURONTIN 300 MG PO ×3 (09:07→21:49)
[2024-07-02] MEDS: PLAVIX 75 MG PO (09:07)
[2024-07-02] MEDS: FLORINEF 0.1 MG PO (09:07)
--- NOTE | 2024-07-02 10:35 | PTOTSP ---
Speech Therapy Language/Cognitive Assessment:
Pt participated in portions of the WAB and presented with mild expressive language deficits as characterized by anomia, paraphasias, and circumlocutory speech. Skills WFL for receptive language.
For cognition, pt participated in the SBT with skills that were WFL for orientation, attention, and STM.
Recommend:
1. Standardized language testing at next level of care
2. ST followup to address expressive language deficits
[2024-07-02] MEDS: VITAMIN B1 100 MG PO ×2 (12:02→21:49)
--- NOTE | 2024-07-02 15:20 | CM ---
Addendum entered by Addie Calderon RN 07/03/24 16:28:
[facility] and [facility] are unable to accept to due patient not having an acute rehab diagnosis. CM sent PM and R consult to [facility] and [facility] for reconsideration.
Addendum entered by Addie Calderon RN 07/03/24 13:10:
CM request admission feedback from [facility].
Addendum entered by Addie Calderon RN 07/03/24 13:07:
[facility] has declined due to no acute rehab diagnosis. JOHN contacted [facility] at [facility] to discuss admission.
Addendum entered by Addie Calderon RN 07/03/24 12:20:
CM updated [facility] with OT notes and neurology notes.[facility] admission coordinator is considering. CM is still pending PMR consult.
Original Note:
CM was advised that patient is medically ready for discharge. Plan for Acute Rehab as per PT. CM sent referrals to [facility] and [facility]. CM is pending PM and R consult.
[2024-07-02 16:18] LABS: Creatine Phosphokinase 436 U/L (30-135)
[2024-07-02] MEDS: LIPITOR 40 MG PO (16:30)
[2024-07-02] MEDS: SYNTHROID 50 MCG PO (21:49)
[2024-07-03] MEDS: ROCEPHIN 1000 MG IV (03:06)
[2024-07-03] MEDS: STERILE WATER FOR INJECTION 10 ML IV (03:07)
--- NOTE | 2024-07-03 07:09 | W.PN.HOSP.TC ---
Today's Communication/Plan
-
-Follow up with CM for discharge to [facility]
Assessment / Plan
Assessment / Plan
Impression: The patient is a 64 year old female with a PMH of hypothyroidism, depression, postural hypotension, GERD, essential tremors, traumatic brain injury (TBI) and C2 fracture (April 19) presented to ER on 06/30, complaining from having
difficulty with her speeching. She reported this problem started yesterday morning and got worsen until afternoon. The patient denied other symptoms like chest pain, irregular heart beating, shortness of breath, feeling weakness on legs/arms,
difficulty with swallowing. Head CT/Head-Neck CTA was unremarkable. Her brain MRI showed: no acute abnormality and represent myelomalacia in the setting of prior trauma of the patient.The patient stated that she had some more difficulty with
swallowing possibly drinking less water. ST was consulted to assess the patient
# Expressive Aphasia
-Neurology assessment: Likely etiology neurodegenerative(PPA), less likely epileptic.
-Hx of weakness of left proximal leg weakness+bilateral upper extremity weakness): OP EMG was recc by neurology
-Hx of Cervical myelopathy with s/p C1-C2 posterior fusion (in 2023)
-OP Neurology follow up was recc (May have EEG+ Neuropsychological evaluation)
-Vit B12 N, Folat: N
-No orthostatic changes noted
-PT/OT evaluation: Acute Rehab ( will benefit from skilled therapy 3 or more hours/day): Patient is aware that she might not be qualified for acute rehab unit.
-ST: Pt seen at bedside for swallow re-consult due to pt reported difficulty when swallowing. Pt demonstrated multiple swallows with regular solids, however no overt s/sx of aspiration. BEAM BUILDER offered diet downgrade to IDDSI Level 6 (soft and bite
sized) to assist in swallow safety and efficiency, in which pt declined: Continue IDDSI Level 7 (regular) solids and thins
#UTI
-UA:Remarkable for UTI
-Urine culture: E coli
-Started on ceftriaxone on
-No fever , no leucocytosis
-Denies dysuria 07/03
-Can be switched to Augmentin due antibiotic S
#Tachycardia
-Was seen by senior construction project manager in January 2024 and was told no significant problem
-No any heart rate regulating medication / No remarkable EKG change
-Follow up OP cardiology
#Alcohol Withdrawal-Less likely
-Denies having hallucinations, sweating and feeling anxious since admission
(The patient reported that yesterday nurse misunderstood her and she was not hallucinating. Denied any visual/auditory hallucinations, sweating, feeling anxious, increased BP
-Ordered protocol to follow up: did not require treatment
-Gabapentin was continued 300 mg TID
# Elevated troponin
-Denies chest pain
-Troponin: Down trending: Dropped from 0.080 to 0.057
-Echo: Mild mitral Regurgitation-No No regional wall motion abnormalities- no cardioembolic source
# Anemia presumed chronic
-Vit B12:769
-TIBC:252 Ferritin: 14.5 Iron:70 %sat:27
- folate: 8.9
-Hemoglobin 9.0
-No active bleeding
-Continue to trend
#mild elevation in CPK
-Trending down from 1019 to 775
-likely rhabdomyolysis
-Cr: 0.7
# Hypothyroidism
-On levothyroxine
# Chronic orthostatic hypotension
-continue Midodrine, Florinef, IVF
# GERD
PPI
# Essential tremors
-Continue primidone
# Anxiety and depression
-Continue Lexapro
# DVT prophylaxis
- SCDs
#Code status
Full code
Anticipated Discharge: 24 - 48 hours
Subjective/Interval History
-
Date of Service: July 03, 2024
The patient reports she is willing to go any rehab to gain back her functioning. It was discussed with her casey saw operator. The patient denies dysuria today. The patient reported having some more difficulty with swallowing today.
Objective Data
-
Vital Signs:
Vital Signs
Temp Pulse Resp BP Pulse Ox
99.1 F 81 16 143/77 88
07/02/24 20:31 07/03/24 01:30 07/02/24 16:00 07/02/24 20:00 07/02/24 16:15
I&O
07/02/24 07/03/24 07/04/24
06:59 06:59 06:59
Intake Total 1210 / 1210 1920 / 1920
Output Total 700 / 700
Balance 1210 / 1210 1220 / 1220
Review of Systems
-
History Source: Patient
Constitutional: Reports No Symptoms
EENT: Reports No Symptoms Reported and Other
Respiratory: Reports No Symptoms
Abdomen/GI: Reports No Symptoms
Genitourinary: Reports No Symptoms
Musculoskeletal: Reports Other (See HPI )
Skin: Reports No Symptoms
Neuro: Reports Other (See HPI )
Physical Exam
-
General: Comfortable, Conversant and Appears Chronically Ill
HEENT: Normocephalic and Atraumatic
Respiratory: Clear to Auscultation
GI: Soft and Nontender
Musculoskeletal: No Clubbing, No Cyanosis, No Edema and Other ((Weakness on bilateral upper extremity following cervical trauma )
Skin: Warm
Neuro: Awake, Alert, Oriented, AO x 3 and Other (See HPI )
[2024-07-03 08:26] VITALS: BP 118/82
[2024-07-03 08:27] VITALS: BP 118/82
[2024-07-03] MEDS: VITAMIN B1 100 MG PO (08:34)
[2024-07-03] MEDS: PLAVIX 75 MG PO (08:34)
[2024-07-03] MEDS: LEXAPRO 20 MG PO (08:34)
[2024-07-03] MEDS: NEURONTIN 300 MG PO ×2 (08:34→17:37)
[2024-07-03] MEDS: PROTONIX 40 MG PO (08:34)
[2024-07-03] MEDS: ASPIR LOW (ENTERIC COATED) 81 MG PO (08:34)
[2024-07-03] MEDS: ProAmatine 10 MG PO ×2 (08:35→12:30)
[2024-07-03] MEDS: FLORINEF 0.1 MG PO (10:49)
[2024-07-03] MEDS: MYSOLINE 250 MG PO (10:49)
[2024-07-03 11:46] VITALS: BP 115/78
[2024-07-03 11:52] VITALS: BP 115/78
--- NOTE | 2024-07-03 12:31 | CON.MD ---
Consultation - Medical
-
Referring Provider:�Dr. Júnior Rivera
Chief Complaint:�Word finding difficulty, ambulatory dysfunction
�
History of Present Illness:�64-year-old right-handed female with PMH (as below) presented to [facility] on 06/30/2024 with word finding difficulty. CT and CTA of the head were negative. She was loaded with aspirin and Plavix. MRI with no
acute stroke noted. Seen by neurology for expressive dysphasia. 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 Plan
to check B12, folate, B1, get routine EEG and outpatient NCS/EMG of bilateral lower extremities given left proximal leg weakness. Echocardiogram with EF 66% no concern for possible stroke concern noted. Noted with an E. coli UTI and started on
ceftriaxone. Seen by therapy with concern for some right thenar and ulnar eminence wasting with right elbow wrist and bundle sorter weakness compared to shoulder. Right more than left weakness. Impaired sensation of the right palmar hand and Dupuytren
contracture to right middle finger. Patient notes that she has had 6 falls in the last few month.
Overall patient notes that this is an acute change with problems with her speech, has gotten better since being in the emergency department. Does note a little bit more focused on being able to get words out and speaking, more focus required with
swallowing think she has had more trouble with using of the right side particularly the right arm. She has worsened sensation in the right arm compared to the left, worse with onset of her symptoms. She is having trouble with balance and
coordination which she says she was not having prior to coming into the hospital. She was able to get up and down steps without concern.
�
Past Medical History:�hypothyroidism, depression, postural hypotension, GERD, essential tremors, C2 fracture, postural hypotension, obesity
Procedure History:�Knee surgery, C1/C2 fusion, femur surgery, stomach surgery
Family History:�Father had a hand tremor
�
Social History:�
Functional Level Premorbidly:�Independent with all activities�
Functional Level Currently:�Min assist lower extremity self-care, min assist toilet transfer. Min assist transfers taking 5 sidesteps with rolling walker, losing balance.
�
Tobacco:�Former
Alcohol:�Occasional
Drug use:�Denies�
�
Lives with:�Significant other
24-hour assistance available:�Now
Number of floors:�2
# steps to enter:�4
# steps to second floor: Full flight
Potential First floor set up:�Yes
Driving:�Yes
Occupation:�Retired hospital estate administrator
�
�
Allergies:�
Allergy/AdvReac Type Severity Reaction Status Date / Time
theophylline Allergy Unknown Verified 06/30/24 19:14
�
Review of Systems:�
Constitutional: (x) abNormal _fatigue
Eye: (x) Normal _
Ear/Nose/Throat: (x) Normal _
Respiratory: (x) Normal _
Cardiovascular: (x) Normal _
Gastrointestinal: (x) Normal _
Genitourinary: (x) Normal _
Musculoskeletal: (x) abNormal _generalized weakness both legs
Integumentary: (x) Normal _
Neurologic: (x) abNormal _trouble with speaking
Psychiatric: (x) Normal _
Endocrine: (x) Normal _
Hematologic/Lymphatic: (x) Normal _
Allergic/Immunologic: (x) Normal _
�
Medications:�
Active Current Visit Medication List
Category Date Time Status
Acetaminophen [Tylenol/Feverall] Med 06/30/24 23:50 Active
650 mg RECTAL Q4HPRN PRN
Acetaminophen [Tylenol] Med 06/30/24 23:50 Active
650 mg PO Q4HPRN PRN
Aspirin Low Dose EC [Aspir Low (Enteric Coated)] Med 07/01/24 08:00 Active
81 mg PO DAILY
Atorvastatin [Lipitor] Med 07/01/24 18:00 Active
40 mg PO QPM
CefTRIAXone [Rocephin] Med 07/02/24 02:00 Active
1,000 mg IV Q24H
Clopidogrel Bisulfate [Plavix] Med 07/01/24 08:00 Active
75 mg PO DAILY
Escitalopram Oxalate [Lexapro] Med 07/01/24 08:00 Active
20 mg PO DAILY
Fludrocortisone Acetate [Florinef] Med 07/01/24 08:00 Active
0.1 mg PO DAILY
Flush (0.9% Sodium Chloride) [Flush (Nss)] Med 07/02/24 22:00 Active
See Dose Instructions IV PER PROTOCOL
Gabapentin [Neurontin] Med 07/01/24 22:00 Active
300 mg PO TID
Levothyroxine [Synthroid] Med 07/01/24 01:00 Active
50 mcg PO HS
Midodrine [ProAmatine] Med 07/01/24 12:00 Active
10 mg PO BID@0800,1200
Midodrine [ProAmatine] Med 07/01/24 18:00 Active
5 mg PO QPM
Oxycodone/Acetaminophen [Percocet 5/325] Med 06/30/24 23:50 Active
1 tablet PO Q4HPRN PRN
Pantoprazole [Protonix] Med 07/01/24 08:00 Active
40 mg PO DAILY
Primidone [Mysoline] Med 07/01/24 08:00 Active
250 mg PO BID
Sterile Water [Sterile Water For Injection] Med 07/02/24 02:00 Active
10 ml IV Q24H
Thiamine HCl [Vitamin B1] Med 07/02/24 20:00 Active
100 mg PO BID
�
Vitals:�
Temp Pulse Resp BP Pulse Ox
98.1 F 74 16 115/78 98
07/03/24 11:52 07/03/24 11:52 07/03/24 11:52 07/03/24 11:52 07/03/24 11:52
Height 5 ft 8 in
Actual Weight 68 kg
Body Mass Index (BMI) 22.8
�
Physical Exam:�
General Appearance/Observation: Well-developed, well-nourished female in no apparent distress.�
Pain/Comfort Assessment: Denies�
Mood/Affect: Appropriate�
�
Integumentary/Operative Site:�No lesions noted during course of exam
�
Eyes: Conjunctiva/Lids: normal���� Pupils: pupils equal round and reactive to light and Accommodation�
Ears/Nose/Throat: oral mucosa moist,� throat clear.������������ Lips/Teeth/Gums: normal�
Cardiovascular: Heart: regular, no murmur�
Pulses: dorsalis pedis 2+ bilaterally�
Respiratory: Respiratory Effort/Chest Expansion: normal������� Auscultation: Clear to auscultation bilaterally�
Gastrointestinal: abdomen not tender, no distension, normal abdominal bowel sounds
Genitourinary: No Buck�
Rectal Exam: Deferred�
Extremities:�Edema: None�Cyanosis: None�Trophic�changes: None
�
Neurology Exam:
Orientation: Alert, Oriented to self, Time, Place�
Memory: Intact for recent medical concerns
Comprehension: Intact
Two step command: Intact
Cranial Nerves:
�� CNII:�Pupillary light reflex: Intact����Visual Field: Intact
�� CN III, IV, : Extraocular muscles: Intact�
�� CN V:�Facial Sensation�at�Forehead: Intact,�Maxilla: Intact,�Mandible: Intact
�� CN VII:�Facial movement: Symmetric
�� CN VIII:�Hearing: Normal
�� CN IX/X:�Speech & swallow: Effortful speech with specific concentration, able to be understood. �Position of Uvula: Midline
�� CN XI:�Shoulder shrug: Symmetric
�� CN XII:�Tongue protrusion: Midline
Sensory:
�� Light touch: Intact in bilateral upper and lower extremities, feels that she has significantly decreased sensation in the last 2 fingers of the right hand and the palm of the right hand, minimal decrease over the thumb index and middle finger
compared to the left.
�
Reflexes:
�� Biceps: 3+ right, 2+ left
�� Brachioradialis: 3+ right, 2+ left
�� Triceps: 3+ right, 2+ left
�� Patellar: 3+ right, 2+ left bilaterally
�� Achilles: 0 bilaterally
�� Babinski: Down going bilaterally
�� Clonus: None
�� Juan: Negative bilaterally�
Cerebellar: Dysmetria/Ataxia: Present bilaterally
Musculoskeletal: Motor: (Manual muscle scale 0-5)�
Muscle SA EF WE EE FF FA HF KE DF EHL PF
Right� 4- 4- 4- 4- 4- 4- 3+ 4- 4- 4-
Left 4 4 4 4 4 4 3+ 4 4 4
�
Tone: Normal in all extremities�
Range of Motion: Passively within normal limits in all extremities�
�
Laboratory Data
07/03/24 07:11
07/03/24 07:10
PT 13.3 Sec (11.4-14.6) 06/30/24 19:28
INR 1.03 06/30/24 19:28
APTT 27.6 Sec (23.4-35.0) 06/30/24 19:28
Total Bilirubin Cancelled 07/03/24 07:10
AST Cancelled 07/03/24 07:10
ALT Cancelled 07/03/24 07:10
Alkaline Phosphatase Cancelled 07/03/24 07:10
Total Protein Cancelled 07/03/24 07:10
Albumin Cancelled 07/03/24 07:10
�
Diagnostic Results:�as per HPI�
�
Assessment
64-year-old R-handed F PMH (hypothyroidism, depression, postural hypotension, GERD, essential tremors, C2 fracture, postural hypotension, obesity, TBI and cervical fracture after fall) with 06/30/2024 with word finding difficulty thought to be likely
neurodegenerative primary progressive aphasia per neurology
Plan�
PM&R�PT/OT to increase independence with ADLs, improve balance, coordination, endurance, strength, mobility, community reintegration, decreased burden of care on others and family education.�
Expressive aphasia: Thought to be primary progressive aphasia and neurodegenerative disease by neurology.
-Started on aspirin and Plavix with statin with initial concern for stroke, is still taking those medications.
-Clinically looks like could be a clinical stroke on exam. Spoke with neurology. Not a stroke given lack of findings on imaging but distribution of areas of stroke that would be involved.
-Wonder with her orthostasis if she could have some temporary symptoms that are not showing up on exam but could be due to hypoperfusion which could be distributed across multiple vascular distributions.
Right arm weakness and difficulty with walking: Unclear etiology, PT/OT.
- check B12, folate, B1, get routine EEG and outpatient NCS/EMG of bilateral lower extremities given left proximal leg weakness.
-Definitely has right worse than left strength. According to patient based upon her cervical myelopathy concerns her arms were symmetrically affected.
E. coli UTI: Treated with ceftriaxone. Can cause worsening of prior symptoms of TBI and debility after cervical fracture.
Falls:�Likely multifactorial�
1. UTI: On antibiotics
2. Cervical fracture history: Noted
3. Orthostasis: Takes midodrine and Florinef. Check orthostatics. Orthostasis concerns could be worse with infection.
4. Vitamin D deficiency?: Check vitamin D level
5. Possible peripheral polyneuropathy: Further evaluate with possible EMG/nerve conduction study and lab testing with neurology as outpatient. Check labs
6. Alcohol use: Discussed alcohol cessation with patient as this will cause increase concern with balance. Cessation advised
Essential tremor: Primidone
Hypothyroidism: levothyroxine�
Anemia: Stable and 9 range.� Continue to monitor.�
Psych: Monitor mood, adjust medications as needed.��
Pain: acetaminophen as needed.� Taking gabapentin 300 mg 3 times daily
Bowel: Colace and Senna, PRN bisacodyl.�
Bladder: UTI. Time void, PVRs, PRN straight cath.�
Alcohol use: Alcohol cessation education, offering of outpatient alcohol abuse program�
GERD: Pantoprazole�
DVT Prophylaxis: Mechanical, not on chemoprophylaxis
Pulmonary: Incentive spirometry�
Safety: Continue to reinforce assistance with all transfers.�
Code Status:� Full code
Dispo�(date/plan/equipment needs): Home with family care.� Social history reviewed.�
Functional and Medical Goals:�Modified Independent with ADL�s, ambulation, transfers�
Discharge Destination:�Clinically patient appears to have symptoms similar to a stroke. Could be multifactorial symptoms with prior cervical myelopathy and UTI. Having aphasia and right more than left sided symptoms of an acute onset per patient
report would be more concerning. Based upon her worsening ability with right arm use and ambulation at mod assist I do think she would be best served in an acute inpatient rehabilitation program. Careful monitoring for orthostasis and adjustment
of medications may be necessary to prevent some potential hypoperfusion concerns with standing.
�
Summary of recommendations:
-�Discharge Destination:�Patient would benefit most from an acute inpatient rehabilitation program
Expressive aphasia: Thought to be primary progressive aphasia and neurodegenerative disease by neurology.
-Started on aspirin and Plavix with statin with initial concern for stroke, is still taking those medications.
-Clinically looks like could be a clinical stroke on exam. Spoke with neurology. Not a stroke given lack of findings on imaging but distribution of areas of stroke that would be involved.
-Wonder with her orthostasis if she could have some temporary symptoms that are not showing up on exam but could be due to hypoperfusion which could be distributed across multiple vascular distributions.
Right arm weakness and difficulty with walking: Unclear etiology, PT/OT.
- check B12, folate, B1, get routine EEG and outpatient NCS/EMG of bilateral lower extremities given left proximal leg weakness.
-Definitely has right worse than left strength. According to patient based upon her cervical myelopathy concerns her arms were symmetrically affected.
E. coli UTI: Treated with ceftriaxone. Can cause worsening of prior symptoms of TBI and debility after cervical fracture.
Falls:�Likely multifactorial�
1. UTI: On antibiotics
2. Cervical fracture history: Noted
3. Orthostasis: Takes midodrine and Florinef. Check orthostatics. Orthostasis concerns could be worse with infection.
4. Vitamin D deficiency?: Check vitamin D level
5. Possible peripheral polyneuropathy: Further evaluate with possible EMG/nerve conduction study and lab testing with neurology as outpatient. Check labs
6. Alcohol use: Discussed alcohol cessation with patient as this will cause increase concern with balance. Cessation advised
�
Thank you for allowing me to care for your patient. Please contact me with any questions or concerns.
--- NOTE | 2024-07-03 14:22 | PTOTSP ---
Speech Therapy Re-consult
Pt seen at bedside for swallow re-consult due to pt reported difficulty when swallowing. Pt demonstrated multiple swallows with regular solids, however no overt s/sx of aspiration. CREATIVE GURU offered diet downgrade to IDDSI Level 6 (soft and bite sized) to
assist in swallow safety and efficiency, in which pt declined.
Recommendations:
1. Continue IDDSI Level 7 (regular) solids and thins
2. Meds as tolerated
3. General aspiration precautions
4. Continued ST to ensure tolerance of current diet level
5. Consider VSE to further assess oropharyngeal swallow function if reported difficulty persists.
[2024-07-03 15:13] VITALS: BP 119/76; BP 139/89; PULSE 79; O2SAT 97
--- NOTE | 2024-07-03 16:42 | W.PN.UPDATE ---
Update Note
Progress Note Update
I personally performed a history and physical exam of the patient and discussed management with the resident. I reviewed the resident's note and agree with the documented findings and plan of care HPI/CC except for changes in my documentation.
CVS: S1-S2 normal
Chest: CTA B/L
Abdomen: Soft, NT / Bowel sounds present
Extremities: No edema, normal pulses
AGRICULTURAL RESEARCH DIRECTOR: no facial droop. Speech thick, Good distal strength.
64-year-old female with speech abnormality.
CVS: S1-S2 normal
Chest: CTA B/L
Abdomen: Soft, NT / Bowel sounds present
Extremities: No edema, normal pulses
AGRICULTURAL RESEARCH DIRECTOR: mild tremors, mild, good distal strength, thick speech
# Expressive -Dysphagia speech abnormality
Neurology feels neurodegenerative changes.
EMG and nerve conduction studies, neuropsychological evaluation as outpatient and also outpatient neurology evaluation
This was discussed with the patient and daughter today.
No orthostatic changes noted
PT OT recommends acute rehab
Alcohol cessation advised.
# UTI- Rocephin . may change to Augmentin at discharge.
# Cervical spine C1 and C2 fusion at [place] October 2023. Patient states that she was discharged from neurosurgery follow-up.
# Elevated troponin-non ischemic myocardial injury.. Echo noted-EF 66%, normal RV size and function. Mild to moderate moderate TR. Pulmonary artery pressure 45 to 50 mmHg
# Atherosclerosis
# Anemia-Normal iron studies, B12
# Mild Rhabdo-mild elevation in CPK-follow
# Mild elevation in AST secondary to elevated secondary to mild Rhabdo-IVF
# Hypothyroidism-continue levothyroxine
# Pulmonary hypertension-patient is aware about outpatient follow-up with pulmonary for further workup
# Chronic orthostatic hypotension-continue Midodrine, Florinef
# GERD-continue PPI
# Essential tremors-continue primidone
# Asthma-NOS stable.
# Duodenal switch surgery for weight loss
# Anxiety and depression-continue Lexapro
# DVT prophylaxis - SCDs
# Full code
Discussed with patient's daughter from her cell phone at bedside yesterday.
D/W Case management
[facility] and [facility] declined the patient. [facility] [place] does not have any beds.
Patient is not willing to go to subacute rehab. I discussed about risk of falls at home.
She stated that she does not want to go to subacute rehab as she is not not mentally prepared to be in a SNF.
[2024-07-03 17:16] VITALS: BP 117/72
--- NOTE | 2024-07-03 17:24 | CM ---
Patient is agreeable to home care and does not want to wait for discharge. CM sent referral via [facility] to [facility]. CM updated hospitalist and bedside RN>
--- NOTE | 2024-07-03 17:27 | W.DCSUMMARY ---
Discharge Summary
Discharge Data
Date of Admission: 06/30/24
Date of Discharge: 07/03/24
-
Pending Results: No
Hospital Course
Discharging Physician : Júnior Rivera MD
Disposition :
Principal Discharge diagnosis : Expressive Aphasia
Chronic Discharge diagnosis : hypothyroidism, depression, postural hypotension, GERD, essential tremors, traumatic brain injury (TBI) and surgery due C2 fracture
Hospital Course :
#Problem 1: Expressive Aphasia: The patient is a 64 year old female with a PMH of hypothyroidism, depression, postural hypotension, GERD, essential tremors, traumatic brain injury (TBI) and C2 fracture (April 19) presented to ER on 06/30,
complaining from having difficulty with her speeching. She reported this problem started the day before and got worsen until afternoon. The patient denied other symptoms like chest pain, irregular heart beating, shortness of breath, feeling
weakness on legs/arms, difficulty with swallowing. Head CT/Head-Neck CTA was unremarkable. Her brain MRI showed: no acute abnormality and represent myelomalacia in the setting of prior trauma of the patient. she was seen by Neurology and
recommended further studies including EEG+ Neuropsychological evaluation and EMG at outpatient setting. She was ssen by OT/PT/ST and was recommended to go [facility]. She was seen by psychiatrist and was recommended acute rehab. CM of the patient
is looking for a possible discharge place for the patient.
#Problem 2: UTI: The patient reported some dysuria at the admission and her UA was remarkable for UTI. She was started on Ceftriaxone. Her Urine culture did show E. coli growth which is sensitive to ceftriaxone and Augmentin. She reported
improvement and not feeling burning on 07/03. It was planned to switch her antibiotic treatment to Augmentin and complete treatment cure for 7 days.
Other Medical Problems: Includes hypothyroidism, depression, postural hypotension, GERD, essential tremors, traumatic brain injury (TBI) and surgery due C2 fracture
Important imaging findings :
Head CT 06/30
IMPRESSION:
There are no focal or acute intracranial abnormalities.
There is mild diffuse cortical and cerebellar atrophy
CT Head & Neck Angio W/wo IV 06/30
IMPRESSION:
There is no evidence of major intracranial branch occlusion or significant stenosis of the major intracranial vessels
There is minimal partially calcific atherosclerotic plaque at both carotid bifurcations without significant stenosis
Brain MRI 07/01
IMPRESSION:
No acute intracranial abnormality noted.
Prior C1-C2 posterior fusion with a 4 mm focus of T2 hyperintense, T1 hypointense signal within the posterior cord at this level which may represent myelomalacia in the setting of prior trauma. Consider dedicated MRI cervical spine for further
evaluation.
Discharge Plan
-
Patient Disposition: Home with Home Care
Discharge Diagnosis/Procedures: Expressive Aphasia
hypothyroidism
depression
postural hypotension
GERD
essential tremors
traumatic brain injury (TBI)
C2 fracture
Condition: Good
Diet: Regular
Activity: With assistance
Driving Restrictions: Not until seen by your Dr
Others Tests: EEG recommended as outpatient.
Other Services: VN, PT, OT and ST
Activity Restrictions/Additional Instructions:
Follow-up with neurology at [facility] for neurodegenerative disorders. EMG nerve conduction study recommended as outpatient. Neuropsychology evaluation recommended as outpatient. Completely stop alcohol use. Workup of anemia as outpatient. Follow-up
with PCP and GI
Referrals:
Jessie Olvera MD [Active] - in two to three weeks
Joel Mancini MD [Active] - (Please follow-up for sleep apnea assessment and also for testing for pulmonary hypertension)
Zhao Muller MD [Family Provider] - in less than 1 week
Prescriptions:
New
atorvastatin 40 mg Tablet
40 mg PO QPM 30 Days Qty: 30 0RF
amoxicillin-pot clavulanate [Augmentin] 500-125 mg tablet
1 tab PO BID MDD 1000 Qty: 10 0RF
Continued
celecoxib 200 mg Capsule
200 mg PO BID
midodrine 5 mg Tablet
10 mg PO BID@0800,1200
aspirin 81 mg Tablet,Delayed Release (Dr/Ec)
81 mg PO DAILY
oxycodone-acetaminophen 5-325 mg Tablet
1 tab PO Q4HPRN PRN (Reason: moderate pain)
Patient Comments:
06/30/2024: last filled 03/12/24, 16 tabs for 3 days from [facility]
primidone 250 mg Tablet
250 mg PO BID
levothyroxine 50 mcg Tablet
50 mcg PO HS
pantoprazole 40 mg Tablet,Delayed Release (Dr/Ec)
40 mg PO DAILY
fludrocortisone 0.1 mg Tablet
0.1 mg PO DAILY
escitalopram oxalate 20 mg Tablet
20 mg PO DAILY
midodrine 5 mg Tablet
5 mg PO QPM
gabapentin 300 mg Capsule
300 mg PO TID
Discharge Orders:
Discharge Patient (As Directed); Ordered 07/03/24
Ordered By: Karina Lake
Discharge Date and Time
Print Language: GERMAN
[2024-07-03] MEDS: LIPITOR 40 MG PO (17:37)
[2024-07-03] MEDS: ProAmatine 5 MG PO (17:37)
== END 2024-07-03 19:04 | disposition home health service (06) ==
LOC: ED 21:54
PROVIDERS: Registered Nurse; Student in an Organized Health Care Education/Training Program; ADMITTING PHYSICIAN Hospitalist; ATTENDING PHYSICIAN Hospitalist; CONSULT PHYSICIAN Physical Medicine & Rehabilitation; CONSULT PHYSICIAN Psychiatry & Neurology Neurology; EMERGENCY PHYSICIAN Student in an Organized Health Care Education/Training Program; FAMILY PHYSICIAN Internal Medicine
DX: R47.01 Aphasia (principal); N39.0 Urinary tract infection, site not specified; R79.89 Other specified abnormal findings of blood chemistry; D64.9 Anemia, unspecified; M62.82 Rhabdomyolysis; R20.2 Paresthesia of skin; M54.2 Cervicalgia; E03.9 Hypothyroidism, unspecified; K21.9 Gastro-esophageal reflux disease without esophagitis; G25.0 Essential tremor; J45.909 Unspecified asthma, uncomplicated; F32.A Depression, unspecified; F41.9 Anxiety disorder, unspecified; I70.90 Unspecified atherosclerosis; R13.10 Dysphagia, unspecified; R29.6 Repeated falls; I95.1 Orthostatic hypotension; R00.0 Tachycardia, unspecified; R51.9 Headache, unspecified; R42 Dizziness and giddiness; G95.89 Other specified diseases of spinal cord; R53.1 Weakness; B96.20 Unspecified Escherichia coli [E. coli] as the cause of diseases classified elsewhere; G31.9 Degenerative disease of nervous system, unspecified; R94.31 Abnormal electrocardiogram [ECG] [EKG]; I08.1 Rheumatic disorders of both mitral and tricuspid valves; Z87.891 Personal history of nicotine dependence; Z88.8 Allergy status to other drugs, medicaments and biological substances; Z87.820 Personal history of traumatic brain injury; Z79.890 Hormone replacement therapy; Z79.82 Long term (current) use of aspirin; Z79.1 Long term (current) use of non-steroidal anti-inflammatories (NSAID); Z79.51 Long term (current) use of inhaled steroids; Z96.651 Presence of right artificial knee joint; Z79.02 Long term (current) use of antithrombotics/antiplatelets; Z98.1 Arthrodesis status
CPT/HCPCS: 70450; 70496; 70498; 70551; 80048; 80053; 80061; 80306; 81003; 81015; 82550; 82607; 82728; 82746; 82962; 83036; 83540; 83550; 84484; 85025; 85027; 85610; 85730; 87070; 87077; 87086; 87186; 92523; 92526; 92610; 93005; 93306; 97163; 97530; G0378; Q9967